=== PATIENT | male | born 1985 | race Hispanic/Latino ===

== ENCOUNTER 2017-08-17 00:39 | Emergency (ER) | payer SELFPAY ==
[2017-08-17 00:40] VITALS: BP 140/80; PULSE 76; RESP 18; TEMP 36.4; O2SAT 100
--- NOTE | 2017-08-17 01:12 | PC.NURSE ---
HE WAS BROUGHT HERE BY [facility] POLICE WITH HIS HANDS CUFFED BEHIND HIS BACK IN THE [employer] TRUCK.[employer] POL[employer] WAS ALSO IN THE PARKING LOT AND OVERHEARD THE PARK RANGERS REPORT.APPARENTLY THE RANGERS SAW HIS CAR PARKED AT THE [place] BRID[place] AND NOTED HIM LOOKING OUT OVER THE BRIDGE.THE SAID WHEN THEY DROVE BACK BY HIM HE HAD WALKED DOWN UNDER THE BRIDGE AND THEN DOWN TO THE BEACH WHERE THEY WENT LOOKING FOR HIM.THEY FOUND HIM LYING ON THE BEACH AND WHEN THEY APPROACHED HIM HE WALKED TOWARDS THEM.THE PARK RANGERS STATED THEY WERE WORRIED HE WANTED TO COMMIT SUICIDE AND TOOK HIM INTO CUSTODY.THEY SAID HE DENIED AND SUICIDAL THOUGHTS TO THEM BUT THAT THEY HAD RED FLAGSAND THEREFORE BROUGHT HIM TO US.IN THE BACK OF THE RANGER TRUCK HE DENIED SUICIDAL OR HARMFULL THOUGHTS.HE WAS CALM AND CO-OPERATIVE.HE ENTERED OUR ED AFTER THE CUFFS WERE REMOVED AND ANSWERED MY QUESTIONS CALMLY.HERE HE DENIED ANY SUICIDAL,HOMICIDAL OR HARMFULL THOUGHTS.HE STATED HE WAS USED TO BEING UP AT NIGHT AND ENJOYED THE VIEW AND BEACH HE HAD JUST DRIVEN HERE FROM [facility] TO [place], [place].HE STATED HE DID NOT WANT ANY HELP AND DID NOT WANT TO BE SEEN BY OUR DOCTOR HERE.[employer] YARN TESTER SAMDROVE HIM BACK TO HIS CAR AT [facility].HE SAID THE WHOLE SITUATION WAS A MISUNDERSTANDING BY THE [employer] RANGERS.
--- NOTE | 2017-08-17 01:39 | ED.MEDCLEAR ---
HPI - Medical Clearance General Chief complaint: Medical Clearance Stated complaint: Suicidal Time Seen by Provider: 08/17/17 01:39 PFSH Social History Smoking Status: Current every day smoker Exam Initial Vital Signs Initial Vital Signs: Vital Signs Temperature 97.6 F 08/17/17 00:40 Pulse Rate 76 08/17/17 00:40 Respiratory Rate 18 08/17/17 00:40 Blood Pressure 140/80 H 08/17/17 00:40 Pulse Oximetry 100 08/17/17 00:40 Course Last Vital Signs Temp 97.6 F 08/17/17 00:40 Pulse 76 08/17/17 00:40 Resp 18 08/17/17 00:40 BP 140/80 H 08/17/17 00:40 Pulse Ox 100 08/17/17 00:40 Discharge Plan Departure Patient Disposition: Home, Self-Care Clinical Impression: Patient left without being seen Interventions: ED Discharge Assessment Last Done: 08/17/17 01:34
== END 2017-08-17 01:45 | disposition home or self-care (01) ==
PROVIDERS: Emergency Provider Emergency Medicine
DX: R46.89 Other symptoms and signs involving appearance and behavior (principal)
CPT/HCPCS: 99281; 99283